=== PATIENT | female | born 1965 | race Caucasian/White ===

== ENCOUNTER → 2017-06-09 | Outpatient (CLI) | payer BC ==
[~2017-06-09] MED LIST: MOTRIN800 MG; TRAMADOL50 MG; VICODIN 500 MG-1 TAB PO; XANAX0.25 MG
[2017-06-09 12:01] LABS: FREE T4 1.01 ng/dl (0.76-1.46); THYROID STIM HORMONE (HS) 1.53 uIU/ml (0.358-4.75)
== END | disposition home or self-care (01) ==
LOC: LAB 10:27 → US 10:30
PROVIDERS: Specialist
DX: E04.2 Nontoxic multinodular goiter (principal)